=== PATIENT | female | born 1945 | race Caucasian/White ===

== ENCOUNTER 2018-06-27 09:22 | Emergency (ER) | payer MEDICARE, OTHER ==
[2018-06-27 10:35] VITALS: BP 144/84
--- NOTE | 2018-06-28 08:03 | UC ---
- Progress Note Progress Note: NO X-RAY ORDERED 06/27/18 Discharge - Sign-Out/Discharge Documenting (check all that apply): Patient Departure All imaging exams completed and their final reports reviewed: No Studies - Discharge Plan Condition: Good Disposition: HOME Patient Education Materials: Tennis Elbow (ED) Referrals: Pasha Cottrell MD [Primary Care Provider] - Additional Instructions: - Exercises as shown - Alternate ice and heat - meloxicam for anti-inflammatory, may take tylenol for pain - Rest, decreased repetitive motions - Golf elbow brace- may by at [facility], [facility] - Billing Disposition and Condition Condition: GOOD Disposition: Home
--- NOTE | 2018-06-30 13:53 | UC ---
Upper Extremity HPI - HPI Summary HPI Summary: the patint is a 73 year old female with multiple PMH who presents for elbow pain worse the past week. she states she fell iin oct 2017 cusing apin but notes increased pain this past week with repetitive motions. has been outside currently branches recently. no recent falls, injuries - History of Current Complaint Chief Complaint: UCUpperExtremity Stated Complaint: L ARM PAIN Time Seen by Provider: 06/27/18 11:11 Hx Obtained From: Patient ?: No Onset/Duration: Gradual Onset, Lasting Weeks Severity Initially: Moderate Severity Currently: Moderate Pain Intensity: 0 Pain Scale Used: 0-10 Numeric Character: Sharp, Dull, Aching, Stiffness Aggravating Factor(s): Movement, Lifting Alleviating Factor(s): Ice - Allergies/Home Medications Allergies/Adverse Reactions: Allergies Allergy/AdvReac Type Severity Reaction Status Date / Time No Known Allergies Allergy Verified 06/27/18 10:35 Home Medications: Home Medications Duloxetine HCl [Cymbalta] 90 mg PO 06/27/18 [History] Meloxicam 7.5 mg PO 06/27/18 [History] Omeprazole 20 mg PO 06/27/18 [History] Valsartan TAB* [Diovan TAB*] 80 mg PO DAILY 06/27/18 [History Confirmed 06/27/18 ] PMH/Surg Hx/FS Hx/Imm Hx Previously Healthy: No - Surgical History Surgical History: Yes Surgery Procedure, Year, and Place: right knee; hysterectomy - Social History Alcohol Use: None Substance Use Type: None Smoking Status (MU): Never Smoked Tobacco Have You Smoked in the Last Year: No Review of Systems Musculoskeletal: Arthralgia, Myalgia Is Patient Immunocompromised?: No All Other Systems Reviewed And Are Negative: Yes Physical Exam Triage Information Reviewed: Yes Appearance: Well-Appearing, No Pain Distress, Well-Nourished Vital Signs: Initial Vital Signs Temp 97.3 F 06/27/18 10:30 Pulse 99 06/27/18 10:30 Resp 18 06/27/18 10:30 BP 144/84 06/27/18 10:30 Pulse Ox 100 06/27/18 10:30 Vital Signs Reviewed: Yes Musculoskeletal: Positive: Strength Intact, ROM Intact, No Edema, Other: - tenderness to palpation ove rmedial epicondyle on L with pain with active extension of hand in flexed possition, no decreased ROM of wrist, elbow. Neurological Exam: Normal Neurological: Positive: Other: - sensation intact to light touch, unable to break OK sign on L hand. full finger strength. Psychological Exam: Normal Skin Exam: Normal Upper Extremity Course/Dx - Course Course Of Treatment: medial epicondylitis. conservative treatment, ortho follow up if no imrpovement. - Differential Dx/Diagnosis Provider Diagnoses: medial epicondylitis Discharge - Sign-Out/Discharge Documenting (check all that apply): Patient Departure All imaging exams completed and their final reports reviewed: No Studies - Discharge Plan Condition: Good Disposition: HOME Patient Education Materials: Tennis Elbow (ED) Referrals: Pasha Cottrell MD [Primary Care Provider] - Additional Instructions: - Exercises as shown - Alternate ice and heat - meloxicam for anti-inflammatory, may take tylenol for pain - Rest, decreased repetitive motions - Golf elbow brace- may by at [facility], [facility] - Billing Disposition and Condition Condition: GOOD Disposition: Home
== END 2018-06-27 11:35 | disposition home or self-care (01) ==
LOC: UCEAST 09:22
DX: M77.02 Medial epicondylitis, left elbow (principal)
CPT/HCPCS: 99212; G0463